=== PATIENT | female | born 2000 | race American Indian/Alaskan Native ===

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

== ENCOUNTER 2019-01-05 02:10 | Outpatient (CLI) | payer SELFPAY ==
[2019-01-05 02:39] VITALS: BP 130/72
== END 2019-01-05 05:00 | disposition home or self-care (01) ==
LOC: TRG 02:10
PROVIDERS: ATTEND Obstetrics & Gynecology
DX: O47.03 False labor before 37 completed weeks of gestation, third trimester (principal); Z3A.37 37 weeks gestation of pregnancy
CPT/HCPCS: 59025

== ENCOUNTER 2019-01-15 19:28 | Outpatient (CLI) | payer SELFPAY ==
[2019-01-15 22:27] VITALS: BP 119/66
--- NOTE | 2019-01-16 02:48 | Ultrasound Report ---
US OB BPP wo non-stress INDICATION / CLINICAL INFORMATION: decrease movement. COMPARISON: None available. FINDINGS: BPP is 8 out of 8. heart rate is 162. Gestational age is 38 weeks 5 days IMPRESSION: Biophysical profile is 8 out of 8. heart rate is 162 Signer Name: Mahesh Haney MD FACR Signed: 01/16/2019 2:44 AM Workstation Name: [email or web address]
== END 2019-01-15 23:03 | disposition home or self-care (01) ==
LOC: TRG 19:28
PROVIDERS: ATTEND Obstetrics & Gynecology
DX: O47.1 False labor at or after 37 completed weeks of gestation (principal); Z3A.38 38 weeks gestation of pregnancy
CPT/HCPCS: 59025; 76819

== ENCOUNTER 2019-01-25 13:03 | Outpatient (CLI) | payer SELFPAY ==
[2019-01-25 14:44] VITALS: BP 132/75
== END 2019-01-25 18:07 | disposition home or self-care (01) ==
LOC: TRG 13:03
PROVIDERS: ATTEND Obstetrics & Gynecology
DX: O47.1 False labor at or after 37 completed weeks of gestation (principal); Z3A.40 40 weeks gestation of pregnancy
CPT/HCPCS: 59025

== ENCOUNTER 2019-01-25 21:39 | Inpatient (IN) | payer OTHER ==
[2019-01-25] MEDS ORDERED: STADOL IV PRN (22:35)
[2019-01-25 22:44] LABS: Hematocrit 31.5 % (30.3-42.9); Hemoglobin 10.4 gm/dl (10.1-14.3); Mean Corpuscular HGB Conc 33 % (30-34); Mean Corpuscular Volume 79 fl (79-97); Platelet Count 212 K/mm3 (140-440); Red Blood Count 3.97 M/mm3 (3.65-5.03); Red Cell Distribution Width 16.2 % (13.2-15.2)
[2019-01-25] MEDS: LACTATED RINGERS 1,000 ML IV SCH (22:45)
[2019-01-25] MEDS ORDERED: MINERAL OIL PO PRN (23:03)
[2019-01-25] MEDS ORDERED: BRETHINE IVP PRN (23:03)
[2019-01-25] MEDS ORDERED: AMPICILLIN/NS 2 GM/100 ML 2 GM/100 ML BAG IV ONE (23:03)
[2019-01-25] MEDS ORDERED: XYLOCAINE 2% INFILTRATI ONE (23:03)
[2019-01-25] MEDS ORDERED: BRETHINE SUB-Q PRN (23:03)
[2019-01-25] MEDS ORDERED: LACTATED RINGERS 1,000 ML IV SCH (23:45)
[2019-01-26] MEDS ORDERED: NARCAN 2 MG/2 ML IV PRN (00:19)
--- NOTE | 2019-01-26 00:19 | Anesthesia Consultation ---
Anesthesia Consult and Med Hx Date of service: 01/26/19 - Airway Anesthetic Teeth Evaluation: Good ROM Head & Neck: Adequate Mental/Hyoid Distance: Adequate Mallampati Class: Class II Intubation Access Assessment: Good - Pulmonary Exam CTA: Yes - Cardiac Exam Cardiac Exam: RRR - Pre-Operative Health Status ASA Pre-Surgery Classification: ASA2, Emergency Proposed Anesthetic Plan: Epidural, Spinal - Pulmonary Hx Asthma: Yes (last attack was last year) COPD: No Hx Pneumonia: No - Cardiovascular System Hx Hypertension: No - Central Nervous System Hx Seizures: Yes (as a child) Hx Psychiatric Problems: No - Endocrine Hx Renal Disease: No Hx End Stage Renal Disease: No Hx Hypothyroidism: No Hx Hyperthyroidism: No - Hematic Hx Anemia: No Hx Sickle Cell Disease: Yes (trait) - Other Systems Hx Alcohol Use: No
--- NOTE | 2019-01-26 00:27 | History and Physical Report ---
History of Present Illness Date of examination: 01/26/19 Date of admission: 01/26/2019 Chief complaint: contractions History of present illness: 18y/o @ 39+6 weeks presents with regular uterine contractions. The patient was 3cm but had worsening of her pain. She initiated care @ 14 weeks ega. Her course has been complicated by STD exposure to trichomonas and chlamydia. 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 +GBS in urine. 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, herpes, trichomonas Social history: single - Obstetrical History Expected Date of Delivery: 01/27/19 Actual Gestation: 39 Week(s) 6 Day(s) : 1 Para: 0 Hx # Term Pregnancies: 0 Number of Pregnancies: 0 Spontaneous Abortions: 0 Induced : 0 Number of Living Children: 0 Medications and Allergies Allergies Allergy/AdvReac Type Severity Reaction Status Date / Time No Known Allergies Allergy Verified 12/28/18 22:23 Home Medications Medication Instructions Recorded Confirmed Last Taken Type No Known Home Medications [No 12/28/18 12/28/18 Unknown History Reported Home Medications] Active Meds: Active Medications Butorphanol Tartrate (Stadol) 2 mg IV Q2H PRN PRN Reason: Labor Pain Last Admin: 01/25/19 22:45 Dose: 2 mg Documented by: Ephedrine Sulfate (Ephedrine Sulfate) 10 mg IV Q2M PRN PRN Reason: Hypotension Ephedrine Sulfate (Ephedrine Sulfate) 10 mg IV Q2M PRN PRN Reason: Hypotension Lactated Ringer's (Lactated Ringers) 1,000 mls @ 125 mls/hr IV DIRECT EDMUND Last Admin: 01/25/19 22:45 Dose: 125 mls/hr Documented by: Oxytocin/Sodium Chloride (Pitocin/Ns 20 Unit/1000ml Drip) 20 units in 1,000 mls @ 125 mls/hr IV DIRECT EDMUND Ampicillin Sodium (Ampicillin/Ns 1 Gm/50 Ml) 1 gm in 50 mls @ 100 mls/hr IV Q4HR EDMUND; Protocol Fentanyl/Bupivacaine/Sodium Chlor (Fentanyl-Bupiv 2 Mcg/Ml-0.125%) 200 mcg in 100 mls @ 12 mls/hr EPIDURAL TITR EDMUND; Protocol Mineral Oil (Mineral Oil) 30 ml PO QHS PRN PRN Reason: Constipation Naloxone HCl (Narcan 2 Mg/2 Ml) 0.2 mg IV Q5M PRN PRN Reason: Respiratory sedation Terbutaline Sulfate (Brethine) 0.25 mg SUB-Q ONCE PRN PRN Reason: Hyperstimulation/Hypertonicity Terbutaline Sulfate (Brethine) 0.25 mg IVP ONCE PRN PRN Reason: Hyperstimulation/Hypertonicity Review of Systems All systems: negative Genitourinary: pelvic pain, contractions - Vital Signs Vital signs: Vital Signs Resp 18 01/25/19 22:45 Temp Pulse Resp BP Pulse Ox 97.3 F L 79 18 127/67 100 01/25/19 23:47 01/26/19 00:21 01/25/19 23:47 01/26/19 00:21 01/26/19 00:18 - Physical Exam Breasts: Positive: deferred Cardiovascular: Regular rate Lungs: Positive: Clear to auscultation Abdomen: Positive: normal appearance Results Result Diagrams: 01/25/19 22:27 Abnormal lab results 01/25/19 Range/Units 22:27 WBC 13.2 H (4.5-11.0) K/mm3 MCH 26 L (28-32) pg RDW 16.2 H (13.2-15.2) % All other labs normal. Assessment and Plan - Patient Problems (1) Active labor at term Current Visit: Yes Status: Acute Plan to address problem: admit to L&D and initiate IV antibiotics
[2019-01-26] MEDS: LACTATED RINGERS 1,000 ML IV SCH (00:30)
[2019-01-26] MEDS ORDERED: PITOCin/NS 30 UNIT/500ML 30 UNITS/500 ML BAG IV SCH (01:00)
[2019-01-26] MEDS ORDERED: fentaNYL-BUPIV 2 MCG/ML-0.125% 200 MCG/100 ML BAG EPIDURAL SCH (01:00)
[2019-01-26] MEDS ORDERED: AMPICILLIN/NS 1 GM/50 ML 1 GM/50 ML BAG IV SCH (03:04)
[2019-01-26] MEDS: PITOCin/NS 20 UNIT/1000ML DRIP 20 UNITS/1,000 ML BAG IV SCH ×2 (03:05→04:51)
[2019-01-26] MEDS ORDERED: PHENERGAN PO PRN (03:13)
[2019-01-26] MEDS ORDERED: LANSINOH TP PRN (03:13)
[2019-01-26] MEDS ORDERED: ZOFRAN IV PRN (03:13)
[2019-01-26] MEDS ORDERED: NORCO 5/325 PO PRN (03:13)
[2019-01-26] MEDS ORDERED: MILK OF MAGNESIA PO PRN (03:13)
[2019-01-26] MEDS ORDERED: PHENERGAN PR PRN (03:13)
[2019-01-26] MEDS ORDERED: DULCOLAX PR PRN (03:13)
[2019-01-26] MEDS ORDERED: TUCKS PAD TP PRN (03:13)
[2019-01-26] MEDS ORDERED: TYLENOL PO PRN (03:13)
[2019-01-26] MEDS ORDERED: BENADRYL PO PRN (03:13)
--- NOTE | 2019-01-26 03:13 | Procedure Note ---
OB Delivery Note - Delivery Date of Delivery: 01/26/19 Surgeon: DIXON PHAM Estimated blood loss: 100cc - Vaginal Delivery presentation: vertex Delivery position: OA Intrapartum events: none Delivery augmentation: pitocin Delivery monitor: external FHT Route of delivery: Delivery placenta: spontaneous Delivery cord: 3 umbilical vessels Episiotomy: none Delivery laceration: none Anesthesia: epidural Delivery comments: The patient progressed to complete complete +1 and pushed to deliver a liveborn male with Apgars of 8 and 9 weight 8 lbs. 2 oz. After delivery of head the shoulders delivered without difficulty. The was bulb suctioned and stimulated. The cord was clamped and cut and the was placed on the patient's abdomen. The placenta delivered spontaneously intact with a three- vessel cord. No Lacerations were noted. Estimated blood loss 100ml. - A at 1 minute: 8 at 5 minutes: 9 Infant Gender: Male (weight 8 lbs. 2 oz.)
[2019-01-26] MEDS ORDERED: SODIUM CHLORIDE FLUSH SYRINGE 10 ML IV PRN (04:00)
[2019-01-26] MEDS: IBUPROFEN PO SCH ×3 (06:58→18:45)
[2019-01-26 15:23] LABS: Hematocrit 28.4 % (30.3-42.9); Hemoglobin 9.4 gm/dl (10.1-14.3)
--- NOTE | 2019-01-26 15:58 | Post Anesthesia Evaluation ---
- Post Anesthesia Evaluation Patient Participated: Yes Airway Patent: Yes Stable Respiratory Function: Yes Nausea/Vomiting: No Temp > 96.8F: Yes Pain Manageable: Yes Adequeate Hydration: Yes Anesthesia Complications: No Block Receding Appropriately: Yes Patient on Ventilator: No
[2019-01-27] MEDS: IBUPROFEN PO SCH ×5 (00:05→23:12)
--- NOTE | 2019-01-27 18:05 | Progress Note ---
Assessment and Plan A:PPD#1 s/p at term, Asymptomatic anemia P:Routine care.Anticipate discharge tomorrow Subjective - Subjective Date of service: 01/27/19 Principal diagnosis: s/p at term Interval history: Pt without complaints doing well. Patient reports: appetite normal, voiding normally, pain well controlled, ambulating normally : doing well Objective - Vital Signs Latest vital signs: Vital Signs Temp Pulse Resp BP 01/27/19 17:52 18 01/27/19 15:00 98.4 F 87 20 134/49 01/27/19 12:35 18 01/27/19 08:22 98.2 F 83 18 143/81 01/27/19 00:00 98.6 F 75 16 106/78 01/26/19 20:00 98.6 F 73 19 118/72 Intake and Output 01/27/19 01/27/19 01/27/19 06:59 14:59 22:59 Intake Total 200 480 240 Balance 200 480 240 Intake: Oral 200 480 240 Other: Total, Intake Amount 200 480 240 # Voids Void 1 # Bowel Movements 1 - Exam Breasts: Present: deferred Cardiovascular: Present: Regular rate Lungs: Present: Clear to auscultation Abdomen: Present: soft Uterus: Present: fundal height at umbilicus Extremities: Present: normal
--- NOTE | 2019-01-27 20:49 | Discharge Summary ---
Providers - Providers Date of Admission: 01/26/19 02:51 Date of discharge: 01/28/19 Attending physician: DIXON PHAM 01/26/19 07:39 Consult to Case Management [CONS] Routine Services Needed at Discharge: Bleach Range Operator Notified:: none Primary care physician: DIXON PHAM Hospitalization Reason for admission: active labor Delivery: Procedure details: Please see delivery note. Episiotomy: none Laceration: none Other procedures: none complications: none Discharge diagnosis: IUP at term delivered [place] baby: male Hospital course: Pt was admitted in labor and went on to have a spontaneous vagina delivery which she tolerated well. The remainder of her course was uncomplicated and she met discharge criteria on PPD#2. She will follow up in the office in 6 wks. Condition at discharge: Stable Disposition: DC-01 TO HOME OR SELFCARE - Discharge Diagnoses (1) Term of male Status: Acute (2) Obesity Status: Acute Qualifiers: Obesity classification: unspecified obesity classification (3) Active labor at term Status: Acute (4) Gestational hypertension Status: Acute (5) Anemia Status: Acute Qualifiers: Anemia type: unspecified type Qualified Code(s): D64.9 - Anemia, unspecified Plan - Discharge Medications Prescriptions: Ferrous Sulfate [Feosol 325 MG tab] 325 mg PO BID #60 tablet Ibuprofen [Motrin 800 MG tab] 800 mg PO Q8HR PRN #30 tablet PRN Reason: Pain, Moderate (4-6) HYDROcodone/APAP 5-325 [[place] 5/325] 1 each PO Q6HR PRN #20 tablet PRN Reason: Pain - Provider Discharge Summary Activity: routine, no sex for 6 weeks, no heavy lifting 4 weeks, no strenuous exercise Diet: routine Instructions: routine Additional instructions: [] Smoking cessation referral if applicable(refer to patient education folder for contact #) [] Refer to [facility] Booklet Call your doctor immediately for: * Fever > 100.5 * Heavy vaginal bleeding ( >1 pad per hour) * Severe persistent headache * Shortness of breath * Reddened, hot, painful area to leg or breast * Drainage or odor from incision. * Keep incision clean and dry at all times and follow doctor's instructions regarding bathing/showering - Follow up plan Follow up: DIXON PHAM MD [Primary Care Provider] - 7 Days (Call to schedule an apptin 1 week for a blood pressure check. Please schedule your son's circumcision before he is one month old. )
[2019-01-28] MEDS: IBUPROFEN PO SCH (05:10)
[2019-01-28] MEDS ORDERED: BOOSTRIX IM ONE (06:00)
[2019-01-28 16:38] VITALS: BP 147/87
== END 2019-01-28 18:15 | disposition home or self-care (01) | DRG 806 ==
LOC: TRG 21:39 → LD 22:31 → TRG 01-26 02:51 → LD 01-26 02:51 → OB 01-26 06:06
PROVIDERS: ADMIT Obstetrics & Gynecology; ATTEND Obstetrics & Gynecology
PROC: 10E0XZZ Delivery of Products of Conception, External Approach (ICD-10-PCS; principal; 2019-01-26)
PROC: 3E0R3BZ Introduction of Anesthetic Agent into Spinal Canal, Percutaneous Approach (ICD-10-PCS; 2019-01-26)
PROC: 00HU33Z Insertion of Infusion Device into Spinal Canal, Percutaneous Approach (ICD-10-PCS; 2019-01-26)
PROC: 3E0234Z Introduction of Serum, Toxoid and Vaccine into Muscle, Percutaneous Approach (ICD-10-PCS; 2019-01-28)
DX: O13.4 Gestational [pregnancy-induced] hypertension without significant proteinuria, complicating childbirth (principal); O98.32 Other infections with a predominantly sexual mode of transmission complicating childbirth; Z37.0 Single live birth; O99.52 Diseases of the respiratory system complicating childbirth; O99.214 Obesity complicating childbirth; E66.9 Obesity, unspecified; O99.02 Anemia complicating childbirth; D64.9 Anemia, unspecified; J45.909 Unspecified asthma, uncomplicated; Z3A.39 39 weeks gestation of pregnancy; Z23 Encounter for immunization
CPT/HCPCS: 36415; 85014; 85018; 85027; 86592; 86850; 86900; 86901; 90471; 90715; G0378; A6250; J0290; J0595; J2590; J7120

== ENCOUNTER 2020-12-09 14:45 | Emergency (ER) | payer MEDICAID, OTHER ==
--- NOTE | 2020-12-09 16:02 | Emergency Department Report ---
ED General Adult HPI - General Chief complaint: Nausea/Vomiting/Diarrhea Stated complaint: VOMITING FOR 4 DAYS Time Seen by Provider: 12/09/20 15:53 Source: patient Mode of arrival: Ambulatory Limitations: No Limitations - History of Present Illness Initial comments: 20-year-old female patient presents to the emergency department with complaints of headache, left flank pain, nausea, and vomiting starting 4 days ago. No preceding fall, trauma, or injury. Patient's child was recently exhibiting similar GI symptoms. Patient states her menstrual cycles have been irregular but she uses contraception. No current steroid or antibiotic use. No recent travel. Denies fever, chills, hematemesis, diarrhea, constipation, pelvic pain, vaginal bleeding, vaginal discharge. Denies all other complaints at this time. - Related Data Previous Rx's Medication Instructions Recorded Last Taken Type Ferrous Sulfate [Feosol 325 MG tab] 325 mg PO BID #60 tablet 01/27/19 Unknown Rx HYDROcodone/APAP 5-325 [[place] 1 each PO Q6HR PRN #20 tablet 01/27/19 Unknown Rx 5/325] Ibuprofen [Motrin 800 MG tab] 800 mg PO Q8HR PRN #30 tablet 01/27/19 Unknown Rx Naproxen 500 mg PO BID #20 tablet 12/09/20 Unknown Rx Ondansetron [Zofran Odt] 4 mg PO Q4H #20 tab.rapdis 12/09/20 Unknown Rx Potassium Chloride [K-Dur] 20 meq PO BID 10 Days tab 12/09/20 Unknown Rx Sulfamethoxazole/Trimethoprim 1 each PO BID 14 Days tablet 12/09/20 Unknown Rx [Bactrim DS TAB] Allergies Allergy/AdvReac Type Severity Reaction Status Date / Time No Known Allergies Allergy Verified 12/28/18 22:23 ED Review of Systems ROS: Stated complaint: VOMITING FOR 4 DAYS Other details as noted in HPI Other: GENERAL: Negative for fever, chills, weight change, anorexia, fatigue. ENT: Negative for ear pain, difficulty hearing, sore throat, nasal congestion, epistaxis. CARDIOVASCULAR: Negative for chest pain, palpitations, lower extremity swelling. PULMONARY: Negative for cough, dyspnea, wheezing, orthopnea, cyanosis. GASTROINTESTINAL: Positive for abdominal pain, nausea, vomiting. MUSCULOSKELETAL: Negative for joint pain, joint swelling, myalgias, back pain, neck pain. NEUROLOGICAL: Positive for headache. INTEGUMENTARY: Negative for erythema, rash, diaphoresis, laceration, ecchymosis. HEMATOLOGICAL: Negative for hemoptysis, hematemesis, hematochezia, hematuria. PSYCHIATRIC: Negative for hallucinations, suicidal ideation, homicidal ideation, anxiety, depression. ED Past Medical Hx - Past Medical History Previous Medical History?: Yes Hx Hypertension: No Hx Congestive Heart Failure: No Hx Diabetes: No Hx Deep Vein Thrombosis: No Hx Renal Disease: No Hx Sickle Cell Disease: Yes (trait) Hx Seizures: Yes (as a child) Hx Asthma: Yes (last attack was last year) Hx COPD: No Hx HIV: No - Surgical History Past Surgical History?: No - Social History Smoking Status: Never Smoker Substance Use Type: None - Medications Home Medications: Home Medications Medication Instructions Recorded Confirmed Last Taken Type Ferrous Sulfate [Feosol 325 MG tab] 325 mg PO BID #60 tablet 01/27/19 Unknown Rx HYDROcodone/APAP 5-325 [[place] 1 each PO Q6HR PRN #20 tablet 01/27/19 Unknown Rx 5/325] Ibuprofen [Motrin 800 MG tab] 800 mg PO Q8HR PRN #30 tablet 01/27/19 Unknown Rx Naproxen 500 mg PO BID #20 tablet 12/09/20 Unknown Rx Ondansetron [Zofran Odt] 4 mg PO Q4H #20 tab.rapdis 12/09/20 Unknown Rx Potassium Chloride [K-Dur] 20 meq PO BID 10 Days tab 12/09/20 Unknown Rx Sulfamethoxazole/Trimethoprim 1 each PO BID 14 Days tablet 12/09/20 Unknown Rx [Bactrim DS TAB] ED Physical Exam - General Limitations: No Limitations - Other Other exam information: General: Awake and alert. No acute distress. Head: Atraumatic, normocephalic. Eyes: EOMI. Pupils are equal and round. Normal sclera and conjunctiva. ENT: Oral mucosa is moist. Normal pharyngeal exam. Neck: Supple. No lymphadenopathy. Pulmonary: No respiratory distress. Clear to auscultation bilaterally. Cardiac: Regular rate and rhythm. Pulses are palpable and equal bilaterally. No lower extremity cyanosis or edema. Skin: Warm and dry. No rashes. Abdomen: Soft, non-protuberant. Left flank tenderness without guarding, rigidity, or rebound. Bowel sounds are normal. No organomegaly or masses noted. McBurney's point is nontender. Mccarty sign is negative. Back: Normal alignment. Left CVA tenderness. Extremities: Symmetrical. Full range of motion intact. Neurological: Alert and oriented, appropriately interactive, no focal deficits. Psych: Cooperative. Appropriate mood and affect. Speech is evenly metered. Thoughts are logically construed. ED Course Vital Signs 12/09/20 12/09/20 15:53 18:11 Temperature 98.8 F Pulse Rate 84 77 Respiratory 18 10 L Rate Blood Pressure 130/83 128/78 O2 Sat by Pulse 98 100 Oximetry ED Medical Decision Making - Lab Data Result diagrams: 12/09/20 16:05 12/09/20 16:05 - Medical Decision Making Differential diagnosis including but not limited to: dehydration, electrolyte abnormality, hypoglycemia, pyelonephritis, nephrolithiasis, urinary tract infection, , viral infection On reevaluation, patient is stable and symptoms have improved. She is sitting upright, nontoxic-appearing, tolerating oral intake without difficulty, smiling, and talking on her phone via video conference. No further vomiting in the emergency department following administration of antiemetics. Labs significant for hyponatremia and hypokalemia. Patient was administered 1 L of IV fluids and her potassium was replenished orally. Urinalysis and physical exam findings consistent with left pyelonephritis. Given IV Rocephin in the emergency department. Urine culture sent. Her renal function is within normal limits. She is producing urine without difficulty. No clinical evidence to suggest concomitant obstructive process warranting CT imaging at this time. test is negative. Patient is an appropriate candidate for outpatient [facility]. She will be discharged home with antibiotics, antiemetics, supplemental potassium, and appropriate analgesics. Patient is under the care of a chain saw mechanic and has been instructed to call Friday to arrange for close outpatient follow-up. Patient expressed understanding and is agreeable to plan of care. Dietary modifications discussed. Strict return precautions provided. Repeat exam is unremarkable and benign. History, exam, diagnostic testing, and current condition do not suggest worrisome pathology to warrant further testing, continued ED treatment, admission, or surgical evaluation at this point. Given the low probability of a significant medical illness, it would be more likely to result in harm than benefit to perform further testing at this stage. Discussed findings, presumptive diagnosis, need for follow-up and specific signs/symptoms that should prompt immediate return to the emergency department. Instructions were explained in detail to the patient in addition to giving written discharge information. Patient expressed understanding and was given the opportunity to as k questions, all of which were satisfactorily answered prior to discharge home. Critical care attestation.: If time is entered above; I have spent that time in minutes in the direct care of this critically ill patient, excluding procedure time. ED Disposition Clinical Impression: Pyelonephritis, Hypokalemia Disposition: TO HOME OR SELFCARE Is pt being admited?: No Does the pt Need Aspirin: No Condition: Stable Instructions: Pyelonephritis, Adult, [id number], Potassium Content of Foods Additional Instructions: Take Tylenol every 4 hours as needed for pain. Take Naprosyn twice daily with food as needed for pain. Take Bactrim with food until complete. Increase your dietary intake of probiotic rich foods while taking this medication. Take Zofran as directed for nausea/vomiting. Take potassium as directed. Increase your dietary intake of potassium rich foods. See attachment for recommendations. Rest. Drink plenty of fluids. Gradually advance diet slowly as tolerated. Follow-up with your primary care provider/chain saw mechanic this week. Call Friday to schedule an appointment. Return to the emergency department immediately for new or worsening symptoms. Specifically, return to the emergency department immediately for fever, worsening pain, vomiting, rash, difficulty using the bathroom, or any other concerns. Prescriptions: Sulfamethoxazole/Trimethoprim [Bactrim DS TAB] 1 each PO BID 14 Days tablet Potassium Chloride [K-Dur] 20 meq PO BID 10 Days tab Naproxen 500 mg PO BID #20 tablet Ondansetron [Zofran Odt] 4 mg PO Q4H #20 tab.nava Referrals: [facility]OM[facility] [Other] - 3-5 Days Forms: Work/School Release Form(ED) Time of Disposition: 18:35
[2020-12-09 16:29] LABS: Basophils % (Auto) 0.2 % (0.0-1.8); Hemoglobin 13.9 gm/dl (10.1-14.3); Lymphocytes # (Auto) 0.8 K/mm3 (1.2-5.4); Lymphocytes % (Auto) 7.7 % (13.4-35.0); Mean Corpuscular HGB Conc 35 % (30-34); Mean Corpuscular Volume 86 fl (79-97); Monocytes # (Auto) 0.5 K/mm3 (0.0-0.8); Monocytes % (Auto) 4.9 % (0.0-7.3); Platelet Count 225 K/mm3 (140-440); Red Blood Count 4.67 M/mm3 (3.65-5.03); Red Cell Distribution Width 14.3 % (13.2-15.2)
[2020-12-09 16:50] LABS: Alanine Aminotransferase 9 units/L (7-56); Albumin 4.3 g/dL (3.9-5); BUN/Creatinine Ratio 10; Blood Urea Nitrogen 8 mg/dL (7-17); Calcium 9.5 mg/dL (8.4-10.2); Hemolysis Index 6
[2020-12-09] MEDS ORDERED: POTASSIUM CHLORIDE ER 20 MEQ TAB PO ONE (17:22)
[2020-12-09] MEDS ORDERED: ONDANSETRON 4 MG ODT TAB PO ONE (17:22)
[2020-12-09 17:23] LABS: Bacteria,Urine 4+ /HPF (Negative); Bilirubin,Urine NEG (Negative); Blood,Urine MOD (Negative); Color,Urine Yellow (Yellow); Mucus,Urine FEW /HPF; WBC,Urine > 182.0 /HPF (0.0-6.0)
[2020-12-09] MEDS ORDERED: LIDOCAINE-MPF (1%) 10 MG/1 ML VIAL 5 ML INFILTRATI ONE (17:41)
[2020-12-09] MEDS ORDERED: SODIUM CHLORIDE 0.9% 1000 ML 1,000 ML IV ONE (17:41)
[2020-12-09] MEDS ORDERED: ONDANSETRON 4 MG/2 ML INJ IV ONE (17:42)
[2020-12-09] MEDS ORDERED: cefTRIAXone/NS 1 GM/50 ML 1 GM/50 ML BAG IV SCH (18:00)
[2020-12-09 19:49] VITALS: BP 128/76
== END 2020-12-09 19:49 | disposition home or self-care (01) ==
LOC: ED 14:45
DX: N12 Tubulo-interstitial nephritis, not specified as acute or chronic (principal); E87.6 Hypokalemia; J45.909 Unspecified asthma, uncomplicated; Z79.899 Other long term (current) drug therapy; Z86.69 Personal history of other diseases of the nervous system and sense organs
CPT/HCPCS: 36415; 80053; 81001; 83735; 84703; 85025; 96365; 96375; 99283; J0696; J2405; J7030